=== PATIENT | male | born 1980 | race Caucasian/White ===

== ENCOUNTER → 2018-11-09 | Outpatient (CLI) | payer BC ==
[~2018-11-09] MED LIST: no home meds
--- NOTE | 2018-11-09 20:18 | REP ---
Clinical: Trauma. Fall on ice. Technique: AP and lateral views of the right tibia / fibula. Findings: No acute fracture or dislocation. Skeletal structures, joint spaces, and surrounding soft tissues are normal. No subcutaneous emphysema or radiodense foreign body. Impression: Normal right tibia / fibula. Electronically Signed by Sergio Knowles MD 11/09/2018 08:11 P
--- NOTE | 2018-11-09 20:21 | REP ---
Clinical: Trauma. Fall on ice. Technique: AP, lateral, bilateral oblique views right ankle. Findings: Lateral swelling noted. No acute fracture or dislocation. Skeletal structures and joint spaces are intact and normal. Ankle mortise appears stable. No subcutaneous emphysema or radiodense foreign body. Impression: Lateral swelling. No acute fracture. Electronically Signed by Sergio Knowles MD 11/09/2018 08:12 P
== END ==
LOC: M ADAMS 18:47
PROVIDERS: ATTEND Physician Assistant
DX: S93.401A Sprain of unspecified ligament of right ankle, initial encounter (principal); M79.661 Pain in right lower leg; M25.471 Effusion, right ankle; X58.XXXA Exposure to other specified factors, initial encounter; Y92.9 Unspecified place or not applicable

== ENCOUNTER 2022-11-25 13:23 | Emergency (ER) | payer BC, OTHER ==
[~2022-11-25] VITALS: Ht 180.3 cm; Wt 81.8 kg
[2022-11-25] MEDS ORDERED: IBUP200T46 PO (15:04)
[2022-11-25] MEDS ORDERED: NS 1,000 ML IV ONE (15:35)
[2022-11-25] MEDS ORDERED: KETOROLAC 30 MG/ML 1ML VIAL IV ONE ×2 (15:40→16:15)
[2022-11-25 16:06] LABS: BASO # 0.1 10^3/uL (0.0-0.2); BASO % 0.3 % (0.0-1.0); HEMATOCRIT 51.2 % (42.0-52.0); HEMOGLOBIN 17.3 g/dl (13.5-17.5); LYMPH # 0.9 10^3/uL (1.5-5.0); LYMPH % 5.1 % (24.0-44.0); MEAN CORPUSCULAR HEMOGLOBIN 30.7 pg (27.0-33.0); MEAN CORPUSCULAR HGB CONC 33.8 g/dl (32.0-36.5); MEAN CORPUSCULAR VOLUME 90.8 fl (80.0-96.0); MONO # 0.5 10^3/uL (0.0-0.8); MONO % 2.9 % (2.0-8.0); NEUTROPHILS # 16.1 10^3/uL (1.5-8.5); NEUTROPHILS % 91.2 % (36.0-66.0); PLATELET COUNT, AUTOMATED 317 10^3/uL (150-450); RED BLOOD COUNT 5.64 10^6/uL (4.30-6.10); WHITE BLOOD COUNT 17.6 10^3/uL (4.0-10.0)
[2022-11-25 16:33] LABS: BILIRUBIN,DIRECT 0.2 MG/DL (<0.4)
[2022-11-25 16:34] LABS: ALBUMIN 4.6 G/DL (3.2-5.2); BILIRUBIN,TOTAL 0.6 MG/DL (0.3-1.2); TOTAL PROTEIN 7.5 G/DL (5.7-8.2)
[2022-11-25] MEDS ORDERED: TAMSULOSIN 0.4 MG CAP PO ONE (16:40)
[2022-11-25] MEDS ORDERED: MORPHINE 4 MG/ML 1ML VIAL IV ONE ×2 (16:40→18:00)
[2022-11-25] MEDS ORDERED: ONDANSETRON 4MG 2ML VIAL IV ONE (16:40)
[2022-11-25] MEDS ORDERED: FLOM0.4C39 PO (19:02)
[2022-11-25] MEDS ORDERED: PERC5TAB12 PO (19:02)
[2022-11-25 19:39] VITALS: BP 117/71
== END 2022-11-25 19:38 | disposition home or self-care (01) ==
LOC: EDBD 13:23 → M ED 16:10
DX: N13.2 Hydronephrosis with renal and ureteral calculous obstruction (principal); R91.1 Solitary pulmonary nodule; D72.829 Elevated white blood cell count, unspecified; Z90.89 Acquired absence of other organs; Z87.820 Personal history of traumatic brain injury
CPT/HCPCS: 74176; 80047; 80076; 81000; 81015; 83690; 85025; 96361; 96374; 96375; 96376; 99284; J2405

== ENCOUNTER 2024-05-25 10:14 | Day surgery (SDC) | payer OTHER ==
[~2024-05-25] VITALS: Ht 180.3 cm; Wt 84.9 kg
[~2024-05-25 10:14] MED LIST changes: +FLOM0.4C39 PO; +IBUP200T46 PO; +PERC5TAB12 PO; +PRIL20TA2 PO
[2024-05-25] MEDS: NS 1,000 ML IV ONE (11:16)
[2024-05-25] MEDS ORDERED: propofoL 200 MG/20 ML VIAL As Ordered ONE (12:07)
[2024-05-25] MEDS ORDERED: fentaNYL 100 MCG/2 ML INJECTION As Ordered ONE (12:07)
[2024-05-25] MEDS ORDERED: LIDOCAINE 2% 100MG/5ML SDV (FOR ANES.) As Ordered ONE (12:21)
[2024-05-25 12:33] VITALS: TEMP 97.4
[2024-05-25 12:50] VITALS: BP 117/78; O2SAT 95
== END 2024-05-25 12:57 | disposition home or self-care (01) ==
LOC: M OPP 10:14
PROVIDERS: ATTEND Surgery
DX: Z12.11 Encounter for screening for malignant neoplasm of colon (principal); D12.6 Benign neoplasm of colon, unspecified; K31.89 Other diseases of stomach and duodenum; K22.70 Barrett's esophagus without dysplasia; K21.00 Gastro-esophageal reflux disease with esophagitis, without bleeding; K30 Functional dyspepsia
CPT/HCPCS: 43239; 45385; 88305; J3010